=== PATIENT | male | born 1930 | race Caucasian/White ===

== ENCOUNTER 2017-06-30 08:10 | Observation (INO) ==
--- NOTE | 2017-06-30 08:22 | Emergency Department Note ---
Disposition Clinical Impression: Decreased ambulation status, Cough, Bilateral leg weakness Dyspnea Qualifiers: Dyspnea type: unspecified Qualified Code(s): R06.00 - Dyspnea, unspecified Disposition: Admitted As Inpatient Condition: Good Referrals: Franco Rehman Jr, MD [Primary Care Provider] - Forms: ED Satisfaction Letter Time of Disposition: 10:56 Dizziness HPI - General Chief Complaint: ED Dizziness Stated Complaint: "dizzy,cough,upset stomach" Time Seen by Provider: 06/30/17 08:22 Source: patient Mode of arrival: ambulatory Limitations: no limitations Nursing Notes Reviewed: Yes Vital Signs Reviewed: Yes - History of Present Illness HPI Narrative: Patient is an 86-year-old male with past medical history of hypertension, hyperlipidemia, history of prostate cancer which he has received chemotherapy treatments in the past but is currently not on any chemotherapy. He lives at an independent living facility through [facility] residency. He presents today due to lightheadedness, productive cough. He states that he has had a productive cough and mild shortness of breath for the past week. During this time, he has also developed gradually lightheadedness. He says that it is mainly when he goes from sitting to standing. Denies any falls, denies any disequilibrium to either side when walking, no other numbness, healing, weakness , no history of CVA in the past. Denies any overt chest pain, abdominal pain, diarrhea. He does have post tussive emesis. - Related Data Allergies Allergy/AdvReac Type Severity Reaction Status Date / Time No Known Allergies Allergy Verified 11/01/15 19:16 All systems ED: reviewed and negative except as stated. Constitutional: Denies: fever Cardiovascular: Denies: chest pain, palpitations Respiratory: Reports: cough, dyspnea, sputum production. Denies: wheezes, hemoptysis Gastrointestinal: Reports: vomiting (Posttussive). Denies: abdominal pain, nausea, diarrhea Genitourinary: Denies: urgency, dysuria Neurological: Denies: headache, weakness, numbness, paresthesias Past Medical History - Past Medical History Attestation: Yes The following information was validated with the patient. Source: patient Medical history: Reports: hyperlipidemia, hypertension Psychiatric history: Reports: no psych history - Social History Smoking Status: Never smoker Alcohol use: Reports: occasionally Drug use: Reports: unknown Physical Exam - General Limitations: no limitations General appearance: alert, in no apparent distress - Head Head exam: atraumatic, normocephalic, normal inspection - Eye Eye exam: Present: normal appearance, PERRL, EOMI - ENT ENT exam: normal exam, normal oropharynx, mucous membranes moist - Neck Neck exam: Present: normal inspection, full ROM, trachea midline - Chest Chest inspection: Present: normal inspection, symmetric chest wall rise - Respiratory Respiratory exam: Present: normal lung sounds bilaterally - Cardiovascular Cardiovascular exam: Present: regular rate, normal rhythm, normal heart sounds - Abdominal Exam Abdominal exam: Present: soft, Non-Tender. Absent: tenderness, distention, guarding, rebound, rigidity - Extremities Exam Extremities exam: Present: normal inspection, full ROM. Absent: tenderness, pedal edema - Neurological Exam Neurological exam: Present: alert, oriented X3, CN II-XII intact. Absent: motor sensory deficit - Psychiatric Psychiatric exam: Present: normal affect, normal mood - Skin Skin exam: Present: warm, dry, intact, normal color Course Course Narrative: Patient is mildly hypertensive. Otherwise, the rest of the vitals were within normal limits. Physical exam shows a patient in no acute distress, heart regular rate and rhythm, 1 exam shows mild wheezing right lower lobe otherwise clear to auscultation. Abdomen soft and nontender. No focal neurologic deficits. We will obtain EKG, chest x-ray, troponin, CT of the head for further assessment. Overall, patient's symptoms sound more orthostatic in nature. We will perform orthostatic vital signs while here in the department. 09:46 labs show mild elevation in white blood cell count. Otherwise, no major electrolyte abnormality. Troponin negative. EKG shows no acute ST changes. Chest x-ray negative for any acute cardiopulmonary process. Head CT negative for any acute intracranial abnormality. Giving the patient 1 L normal saline bolus. We will reassess and ambulate the patient. 10:20 patient had weakness in his bilateral lower 70s while trying to ambulate. This is new for him. He also has continued cough and some mild nausea. We will give the patient a breathing treatment and see if this helps. Will discuss with his primary care physician. May consider bringing the patient in as he usually lives at home by himself and has a new difficulty with ambulation. 10:[address] Spoke with his PCP Dr. Rehman who agrees that this bilateral lower extremity weakness is new for the patient. We will admit the patient for bilateral large [place]-weakness, difficulty with ambulation, cough and dyspnea. Chest X-Ray 06/30/17 08:31 IMPRESSION: No acute process. Re-demonstration of old left rib fractures, COPD and postthoracotomy changes. D/ / 06/30/2017 08:43:56 Naomi Hull MD / [facility] Interpreting Provider: Naomi Hull MD Head CT 06/30/17 08:33 IMPRESSION: Atrophy and chronic small vessel ischemic disease with bilateral remote lacunar infarcts of the basal ganglia. No acute intracranial abnormality. D/ / 06/30/2017 09:03:19 Pérez Wan MD / [facility] Interpreting Provider: Pérez Wan MD Vital Signs Temperature 99.3 F 06/30/17 08:25 Pulse Rate 72 06/30/17 08:25 Respiratory Rate 18 06/30/17 08:25 Blood Pressure 154/71 06/30/17 08:25 O2 Sat by Pulse Oximetry 98 06/30/17 08:25 Temperature 99.3 F 06/30/17 08:25 Pulse Rate 61 06/30/17 10:52 Respiratory Rate 15 06/30/17 10:52 Blood Pressure 166/96 06/30/17 10:52 O2 Sat by Pulse Oximetry 100 06/30/17 10:52 Oxygen Delivery Oxygen Delivery Room Air [facility] Narrative Medical decision making narrative: Patient is mildly hypertensive. Otherwise, the rest of the vitals were within normal limits. Physical exam shows a patient in no acute distress, heart regular rate and rhythm, 1 exam shows mild wheezing right lower lobe otherwise clear to auscultation. Abdomen soft and nontender. No focal neurologic deficits. We will obtain EKG, chest x-ray, troponin, CT of the head for further assessment. Overall, patient's symptoms sound more orthostatic in nature. We will perform orthostatic vital signs while here in the department. 09:46 labs show mild elevation in white blood cell count. Otherwise, no major electrolyte abnormality. Troponin negative. EKG shows no acute ST changes. Chest x-ray negative for any acute cardiopulmonary process. Head CT negative for any acute intracranial abnormality. Giving the patient 1 L normal saline bolus. We will reassess and ambulate the patient. 10:20 patient had weakness in his bilateral lower 70s while trying to ambulate. This is new for him. He also has continued cough and some mild nausea. We will give the patient a breathing treatment and see if this helps. Will discuss with his primary care physician. May consider bringing the patient in as he usually lives at home by himself and has a new difficulty with ambulation. 10:[address]oke with his PCP Dr. Rehman who agrees that this bilateral lower extremity weakness is new for the patient. We will admit the patient for bilateral large [place]-weakness, difficulty with ambulation, cough and dyspnea. - Medical Records Medical records reviewed: Yes I reviewed the patient's medical records. - Lab Data Lab results reviewed: Yes I reviewed the patient's lab results. Result diagrams: 06/30/17 08:46 06/30/17 08:46 Lab Results 06/30/17 06/30/17 06/30/17 Range/Units 08:46 08:46 08:46 WBC 12.4 H (4.3-11.1) K/mcL RBC 4.11 L (4.19-5.50) M/mcL Hgb 12.3 L (12.9-16.9) g/dL Hct 37.3 L (37.5-50.1) % MCV 90.8 (83.0-100.0) fL MCH 29.9 (28.0-33.3) pg MCHC 33.0 (31.6-35.5) g/dL RDW 14.4 (11.5-14.5) % Plt Count 265 (140-400) K/mcL MPV 10.3 (9.4-12.4) fL Immature Gran % 0.5 (0-4) % Seg Neutrophils % 82.6 % Lymphocytes % 7.3 % Monocytes % 8.5 % Eosinophils % 0.9 % Basophils % 0.2 % Neutrophils # 10.2 H (1.6-8.9) K/mcL Lymphocytes # 0.9 (0.6-4.6) K/mcL Monocytes # 1.1 (0.0-1.3) K/mcL Eosinophils # 0.1 (0.0-0.6) K/mcL Basophils # 0.0 (0.0-0.2) K/mcL Nucleated RBCs/100 WBC 0.2 H (0) /100 WBC PT 11.1 (9.4-12.1) Seconds INR 1.0 Sodium 137 (136-145) mEq/L Potassium 4.8 (3.5-5.1) mEq/L Chloride 103 (98-107) mEq/L Carbon Dioxide 27 (23-29) mEq/L BUN 27 H (8-23) mg/dL Creatinine 1.16 (0.70-1.30) mg/dL Est GFR ( Amer) > 60 (> 60) Est GFR (Non-Af Amer) 59 L (> 60) BUN/Creatinine Ratio 23 (6-26) Glucose 125 H (70-105) mg/dL Calculated Osmolality 291 (280-300) Calcium 9.2 (8.6-10.3) mg/dL Troponin I < 0.03 (< 0.04) ng/mL - Radiology Data Radiology results reviewed: Yes I reviewed the patient's radiology results. Chest X-Ray 06/30/17 08:31 IMPRESSION: No acute process. Re-demonstration of old left rib fractures, COPD and postthoracotomy changes. D/ / 06/30/2017 08:43:56 Naomi Hull MD / [facility] Interpreting Provider: Naomi Hull MD Head CT 06/30/17 08:33 IMPRESSION: Atrophy and chronic small vessel ischemic disease with bilateral remote lacunar infarcts of the basal ganglia. No acute intracranial abnormality. D/ / 06/30/2017 09:03:19 Pérez Wan MD / [facility] Interpreting Provider: Pérez Wan MD - EKG Data EKG attestation: Yes I reviewed and interpreted this EKG. EKG results narrative: 06/30/2017 and 08:21. Normal sinus rhythm. Rate 70. OK 168. QRS 104. QTC 404. Left axis deviation. No acute ST elevation or depression. There is some mild ST elevation in V2 that was present on old EKG on 11/01/2015. S.Sybil. - S.Sybil. Situation: Demographics, MOA Background: Presenting Complaint, Relevant PMH, Meds, & Allergies Assessment: Vital Signs, Course and respsone to treatment, Exam Concerns, Patient/Family Expectation, Pertinant Lab Results Recommendation: Barrier(s) to disposition, Recommendation based on pending studies, treatments, or consults S.B.A.R. Report Given to: Dr. Atkins
--- NOTE | 2017-06-30 08:32 | Emergency Department Note ---
START Narrative - START START: I examined this patient and my medical decision-making was reviewed with the Resident Physician. I agree with the documented findings, disposition and treatment plan as described except to the extent set forth below. 86-year-old male presented to the emergency room for cough and dizziness. Onset 2 days ago. States he has been having some vomiting secondary to posttussive. Patient will be worked up for this cough as well as his dizziness. We will check some cardiac labs as well. Chest x-ray EKG. Screening lab work. Disposition is pending at this time.
[2017-06-30 09:00] LABS: Basophils % 0.2 %; Eosinophils # 0.1 K/mcL (0.0-0.6); Eosinophils % 0.9 %; Hematocrit 37.3 % (37.5-50.1); Hemoglobin 12.3 g/dL (12.9-16.9); Immature Granulocytes % 0.5 % (0-4); Lymphocytes # 0.9 K/mcL (0.6-4.6); Lymphocytes % 7.3 %; Mean Corpuscular Hemoglobin 29.9 pg (28.0-33.3); Mean Corpuscular Volume 90.8 fL (83.0-100.0); Mean Platelet Volume 10.3 fL (9.4-12.4); Monocytes # 1.1 K/mcL (0.0-1.3); Monocytes % 8.5 %; Neutrophils # 10.2 K/mcL (1.6-8.9); Nucleated Red Blood Cells 0.2 /100 WBC (0); Platelet Count 265 K/mcL (140-400); Red Blood Count 4.11 M/mcL (4.19-5.50); Red Cell Distribution Width 14.4 % (11.5-14.5); Segmented Neutrophils % 82.6 %
[2017-06-30 09:11] LABS: Prothrombin Time 11.1 Seconds (9.4-12.1)
[2017-06-30 09:25] LABS: BUN/Creatinine Ratio 23 (6-26); Blood Urea Nitrogen 27 mg/dL (8-23); Calcium 9.2 mg/dL (8.6-10.3); Carbon Dioxide 27 mEq/L (23-29); Chloride 103 mEq/L (98-107); Glucose 125 mg/dL (70-105); Osmolality,Calculated 291 (280-300); Potassium 4.8 mEq/L (3.5-5.1); Sodium 137 mEq/L (136-145); Troponin I < 0.03 ng/mL (< 0.04); eGFR For African Americans > 60 (> 60); eGFR For Non-African Americans 59 (> 60)
[2017-06-30] MEDS ORDERED: 0.9 % Sodium Chloride 1,000 ML IVC ONE (09:46)
[2017-06-30] MEDS ORDERED: Ipratropium/Albuterol Neb 3 ML IH ONE (10:17)
[2017-06-30] MEDS ORDERED: Naloxone 0.4 MG/ML INJ IVP PRN (14:52)
[2017-06-30] MEDS ORDERED: Acetaminophen 325 MG TABLET PO PRN (14:52)
--- NOTE | 2017-06-30 14:57 | Internal Med History&Physical ---
Date of Encounter: 06/30/17 Time of Encounter: 14:30 Internal Medicine - H&P: HPI Chief complaint: Dizziness, leg weakness Admitted From: Emergency Dept Plans for Post Hospital Care: Home History of present illness: Mr. Melgoza is a 86 year old male with h/o- CAD, HTN, who presents with c/o- dizziness and leg weakness. Paient reports he has been having weakness in both his legs, which has been going on for at least a month or more. He is very active at baseline and was able to walk at least 1 mile each day at his independent living facility. He has been experiencing dizziness on standing up from sitting position/supine position along with weakness in both his legs, and is unable to ambulate for fear of falling. No fever/chills. No associated headache, chest pain, dyspnea, blurred vision, paresthesias or syncope. He does report dry cough, which does not bother him too much. Past Med Surg Social Fam HX - Past Medical History Medical history: asthma, cancer (prostate), coronary artery disease, hyperlipidemia, hypertension, renal disease Psychiatric history: no psych history - Past Surgical History Surgical History: appendectomy, coronary bypass (CABG), vascular surgery (AAA repair) - Social History Smoking Status: Former smoker Smokeless Tobacco Status: No Alcohol use: occasionally Drug use: none Occupational status: retired Current living situation: Assisted Living Activity Level: Independent ambulation Recent Out of Country Travel Within the Last 8 Weeks: No Exposure or Possible Exposure to Illness During Travel: No - Family History Father Hx Family Cardiac Disorders: Yes (CAD) Grandfather Hx Family Cardiac Disorders: Yes (CAD) Internal Medicine - H&P: Meds Aspirin [Adult Aspirin Regimen] 81 mg PO DAILY 06/30/17 [History] Atorvastatin Calcium [Lipitor] 20 mg PO QPM 06/30/17 [History] Fluticasone Propionate [Flovent Hfa] 2 puff IH BID 06/30/17 [History] Folic Acid 1 mg PO DAILY 06/30/17 [History] Lisinopril [Zestril] 20 mg PO DAILY 06/30/17 [History] 3 Allergy/AdvReac Type Severity Reaction Status Date / Time No Known Allergies Allergy Verified 11/01/15 19:16 All Systems PM: A 10-system review of systems was performed and is negative for pertinent findings except as documented above in the HPI. - Constitutional Constitutional: weakness - EENT Eyes: no change in vision, no discharge, no pain, no photophobia Ears: no ear discharge, no ear pain, no tinnitus Nose, mouth and throat: no dysphagia, no nasal discharge, no neck pain, no sore throat - Cardiovascular Cardiovascular ROS IM: lightheadedness, no chest pain, no diaphoresis, no dyspnea, no palpitations, no syncope - Respiratory Respiratory: cough - Gastrointestinal Gastrointestinal: no abdominal pain, no diarrhea, no hematemesis, no hematochezia, no melena, no nausea, no vomiting - Musculoskeletal Musculoskeletal ROS IM: no numbness, no tingling - Integumentary Integumentary IM: no rash, no unusual bruising - Neurological Neurological ROS: abnormal gait, dizziness, no confusion, no convulsions, no focal weakness, no numbness, no tingling, no tremor(s) - Hematologic/Lymphatic Hematologic/Lymphatic: no easy bruising - Constitutional Vitals: Temp Pulse Resp BP Pulse Ox 97.9 F 66 14 124/62 95 06/30/17 13:55 06/30/17 13:55 06/30/17 13:55 06/30/17 13:55 06/30/17 13:55 General appearance: Present: A&O X 3, answers questions appropriately - Respiratory Respiratory exam: Present: CTAB. Absent: accessory muscle use, rales, rhonchi, wheezes - Cardiovascular Cardiovascular exam: Present: RRR, +S1, +S2. Absent: diastolic murmur, gallop, rubs, systolic murmur - GI/Abdominal GI/Abdominal exam: Present: normal bowel sounds, soft, no peritoneal signs. Absent: distended, tenderness - Extremities Exam Extremities exam: Present: full ROM, warm, radial pulses palpable and symmetrical. Absent: calf tenderness, cyanotic, pedal edema - Neurological Exam Neurological exam: Present: CN II-XII intact, oriented X3, no focal deficits. Absent: pronater drift, facial droop, speech deficit - Skin Skin exam: Present: dry, intact Internal Med - H&P Results - Labs CBC & Chem 7: 06/30/17 08:46 06/30/17 08:46 - Assessment and plan (1) Bilateral leg weakness Current Visit: Yes Status: Acute Assessment and plan: new onset but somewhat subacute to chronic per history. Plan as below; check electrolytes. PT/OT evaluation. (2) Dizziness Current Visit: Yes Status: Acute Assessment and plan: Orthostatic vitals negative. CT head showed old lacunar infarcts in basal f\ ganglia, chronic microvascular ischemic disease; chest XRay reviewed independently- hyoperexpanded lung fitzpatrick, sternotomy wires intact, RLL chronic interstitial changes. EKG shows no acute ischemic changes, per ER notes, cannot find EKG at this time. Continue to monitor vital sings closely. Check MRI brain to r/o small posterior stroke. Carotid Doppler from 2016 showed B/L 60-79% stenosis, will repeat Carotid Doppler to evaluate progression. PT/OT evaluation. Fall precautions. (3) Essential hypertension Current Visit: Yes Status: Chronic Assessment and plan: BP noted to be fairly elevated at triage; continue ACEI and monitor closely; (4) Hyperlipidemia Current Visit: Yes Status: Chronic Assessment and plan: continue statin; Qualifiers: Hyperlipidemia type: unspecified Qualified Code(s): E78.5 - Hyperlipidemia , unspecified (5) CAD (coronary artery disease) Current Visit: Yes Status: Chronic Assessment and plan: continue ASA and statin; check serial Troponins, continue Telemetry monitoring. Qualifiers: Coronary Disease-Associated Artery/Lesion type: bypass graft [place] vs. transplanted heart: [place] heart Associated angina: without angina Qualified Code(s): I25.810 - Atherosclerosis of coronary artery bypass graft(s) without angina pectoris (6) CKD (chronic kidney disease), stage III Current Visit: Yes Status: Chronic Assessment and plan: serum creatinine and GFR stable, at baseline. Avoid new nephrotoxic agents. - Time Spent With Patient Total time spent is greater than 50% in coordination of care (as documented) at patient's floor/unit and/or counseling patient:
[2017-06-30 15:38] LABS: Bilirubin,Urine Negative (Negative); Blood,Urine Negative (Negative); Clarity,Urine Clear (Clear); Color,Urine Yellow (Yellow); Glucose,Urine (UA) Normal (Normal); Ketones,Urine Negative (Negative); Leukocyte Esterase,Urine Negative (Negative); Nitrite,Urine Negative (Negative); PH,Urine 6.5 pH Units (5.0-8.0); Protein,Urine Negative (Neg-Trace); Urobilinogen,Urine Normal (Normal)
[2017-06-30] MEDS: *HR* Heparin 5,000 UNIT/ML VIAL SQ SCH (20:13)
[2017-06-30] MEDS: Beclomethasone 80mcg MDI IH SCH (21:17)
[2017-07-01 04:58] LABS: Basophils % 0.4 %; Eosinophils # 0.3 K/mcL (0.0-0.6); Eosinophils % 4.3 %; Hematocrit 33.1 % (37.5-50.1); Immature Granulocytes % 0.3 % (0-4); Lymphocytes # 2.2 K/mcL (0.6-4.6); Lymphocytes % 30.8 %; Mean Corpuscular HGB Conc 32.3 g/dL (31.6-35.5); Mean Corpuscular Hemoglobin 29.5 pg (28.0-33.3); Mean Corpuscular Volume 91.2 fL (83.0-100.0); Mean Platelet Volume 10.7 fL (9.4-12.4); Monocytes # 0.8 K/mcL (0.0-1.3); Monocytes % 10.5 %; Neutrophils # 3.9 K/mcL (1.6-8.9); Platelet Count 233 K/mcL (140-400); Red Blood Count 3.63 M/mcL (4.19-5.50); Red Cell Distribution Width 14.6 % (11.5-14.5); Segmented Neutrophils % 53.7 %
[2017-07-01 05:09] LABS: BUN/Creatinine Ratio 23 (6-26); Blood Urea Nitrogen 24 mg/dL (8-23); Calcium 8.7 mg/dL (8.6-10.3); Carbon Dioxide 26 mEq/L (23-29); Chloride 109 mEq/L (98-107); Glucose 100 mg/dL (70-105); Magnesium 2.3 mg/dL (1.6-2.6); Osmolality,Calculated 294 (280-300); Potassium 4.6 mEq/L (3.5-5.1); Sodium 140 mEq/L (136-145); eGFR For African Americans > 60 (> 60); eGFR For Non-African Americans > 60 (> 60)
[2017-07-01 05:14] LABS: Hemoglobin 10.7 g/dL (12.9-16.9)
[2017-07-01] MEDS: *HR* Heparin 5,000 UNIT/ML VIAL SQ SCH ×3 (05:24→21:48)
[2017-07-01] MEDS: Beclomethasone 80mcg MDI IH SCH ×2 (08:11→20:26)
[2017-07-01] MEDS: Lisinopril 20 MG TABLET PO SCH (10:19)
[2017-07-01] MEDS: Folic Acid 1 MG TABLET PO SCH (10:19)
[2017-07-01] MEDS: Aspirin Enteric Coated 81 MG Tablet PO SCH (10:19)
--- NOTE | 2017-07-01 17:55 | Internal Med Progress Note ---
Date of Encounter: 07/01/17 Time of Encounter: 17:53 - Assessment and plan (1) Bilateral leg weakness Current Visit: Yes Status: Acute Assessment and plan: Patient feels he is back to his baseline. PT/OT evaluation completed. (2) Dizziness Current Visit: Yes Status: Acute Assessment and plan: Orthostatic vitals negative. CT head showed old lacunar infarcts in basal f\ ganglia, chronic microvascular ischemic disease; chest XRay reviewed independently- hyoperexpanded lung fitzpatrick, sternotomy wires intact, RLL chronic interstitial changes. EKG shows no acute ischemic changes, per ER notes, Continue to monitor vital sings closely. MRI brain negative for acute changes just old infarcts.. Carotid Doppler from 2016 showed B/L 60-79% stenosis, repeat Carotid Doppler report pending. PT/OT evaluation completed and recommend cane and return to his assisted living facility with fall precautions. (3) Essential hypertension Current Visit: Yes Status: Chronic Assessment and plan: BP stable; (4) Hyperlipidemia Current Visit: Yes Status: Chronic Assessment and plan: continue home statin; Qualifiers: Hyperlipidemia type: unspecified Qualified Code(s): E78.5 - Hyperlipidemia , unspecified (5) CAD (coronary artery disease) Current Visit: Yes Status: Chronic Assessment and plan: continue ASA and statin, serial Troponins negative, continue Telemetry monitoring. Qualifiers: Coronary Disease-Associated Artery/Lesion type: bypass graft [place] vs. transplanted heart: [place] heart Associated angina: without angina Qualified Code(s): I25.810 - Atherosclerosis of coronary artery bypass graft(s) without angina pectoris (6) CKD (chronic kidney disease), stage III Current Visit: Yes Status: Chronic Assessment and plan: serum creatinine and GFR stable, at patient baseline. Avoid new nephrotoxic agents. - Time Spent With Patient Total time spent is greater than 50% in coordination of care (as documented) at patient's floor/unit and/or counseling patient: - Subjective Interval history: Patient was up walking the [facility] with [facility] therapy. He is just a slightly unstable gait per their assessment a recommend he use a cane or a walker at the [facility]. They feel he is able to return to [facility] assisted living without difficulty. The patient states he is no longer dizzy. He states that he feels like he is back to his baseline. He has no chest pain, shortness of breath, sweats, fever, chills, headache, blurred vision, dizziness or ringing in his ears. He feels that he could go back to his apartment with his cat tonight if he would be allowed. I told her I would like to watch him overnight and monitor his blood pressure and make sure he was not orthostatic before he left. He verbalized understanding and is agreeable to stay. - Constitutional Vitals: Temp Pulse Resp BP Pulse Ox 98.7 F 65 16 126/71 96 07/01/17 15:36 07/01/17 15:36 07/01/17 15:36 07/01/17 15:36 07/01/17 15:36 General appearance: Present: cooperative, A&O X 3, pleasant, answers questions appropriately - Head Head exam: Present: atraumatic, normocephalic - Eye Eye exam: Present: normal appearance, PERRL, conjuntiva pink, sclera anicteric. Absent: nystagmus Pupils: Present: PERRL - Neck Neck exam general surgery: Present: supple, trachea midline. Absent: lymphadenopathy - Respiratory Respiratory exam: Present: CTAB. Absent: accessory muscle use, rales, rhonchi, wheezes - Cardiovascular Cardiovascular exam: Present: RRR, +S1, +S2. Absent: diastolic murmur, gallop, rubs, systolic murmur - GI/Abdominal GI/Abdominal exam: Present: normal bowel sounds, soft, no peritoneal signs. Absent: distended, tenderness - Extremities Exam Extremities exam: Present: warm, radial pulses palpable and symmetrical. Absent : calf tenderness, cyanotic, pedal edema - Neurological Exam Neurological exam: Present: alert, CN II-XII intact, oriented X3, no focal deficits. Absent: pronater drift, facial droop, speech deficit - Skin Skin exam: Present: dry, intact, normal color, warm Internal Medicine: Result - Labs CBC & Chem 7: 07/01/17 03:32 07/01/17 03:32 Labs: Short CBC 07/01/17 Range/Units 03:32 WBC 7.2 (4.3-11.1) K/mcL Hgb 10.7 L D (12.9-16.9) g/dL Hct 33.1 L (37.5-50.1) % Plt Count 233 (140-400) K/mcL Neutrophils # 3.9 (1.6-8.9) K/mcL BMP 07/01/17 03:32 Sodium 140 Potassium 4.6 Chloride 109 H Carbon Dioxide 26 BUN 24 H Creatinine 1.05 Glucose 100 Calcium 8.7 Cardiac Enzymes 06/30/17 07/01/17 Range/Units 21:38 03:32 Troponin I < 0.03 < 0.03 (< 0.04) ng/mL - ABG Interpretation ABG results: PT/INR, D-dimer PT 11.1 Seconds (9.4-12.1) 06/30/17 08:46 - Impressions Impressions Brain MRI 06/30/17 14:54 IMPRESSION: 1. No acute intracranial abnormality. 2. Moderate chronic white matter microvascular ischemic changes. 3. Remote lacunar infarcts in the bilateral basal ganglia and left thalamus. D/ / Volodymyr Perdomo / Volodymyr Perdomo Interpreting Provider: Volodymyr Perdomo Consult Discharge Plan - Plan Referrals: Franco Rehman Jr, MD [Primary Care Provider] -
[2017-07-02] MEDS: *HR* Heparin 5,000 UNIT/ML VIAL SQ SCH (05:31)
[2017-07-02] MEDS ORDERED: *HR* Metoprolol 5 MG/5 ML VIAL IVP STA (07:37)
[2017-07-02] MEDS ORDERED: *HR* Metoprolol 5 MG/5 ML VIAL IVP ONE (07:39)
[2017-07-02] MEDS: Beclomethasone 80mcg MDI IH SCH (09:56)
[2017-07-02] MEDS: Aspirin Enteric Coated 81 MG Tablet PO SCH (11:37)
[2017-07-02] MEDS: Lisinopril 20 MG TABLET PO SCH (11:37)
[2017-07-02] MEDS: Folic Acid 1 MG TABLET PO SCH (11:37)
[2017-07-02 12:09] VITALS: BP 131/60
--- NOTE | 2017-07-02 12:09 | Discharge Summary ---
- NOTES TO OUTPATIENT PROVIDER Notes to Outpatient Provider: Holter monitor and then follow-up with cardiology as scheduled as outpatient. Follow-up with primary care physician. Fall risk and should utilize a cane or walker at his assisted living facility. Patient requesting to have no CPR, no heroics no machines he would like to be a DNR Orders not resulted at time of discharge: Pending orders 07/02/17 09:03 EV echocardiogram Routine 07/02/17 10:10 ECG 48 holter monitor setup [ECG] Routine 07/02/17 13:10 Troponin I Stat 07/02/17 19:30 Troponin I Routine Date of Encounter: 07/02/17 Time of Encounter: 12:05 - Discharge Diagnosis (1) Bilateral leg weakness Priority: Primary Status: Chronic (2) Dizziness Priority: Primary Status: Acute (3) Essential hypertension Priority: Primary Status: Chronic (4) Hyperlipidemia Priority: Primary Status: Chronic Qualifiers: Hyperlipidemia type: unspecified Qualified Code(s): E78.5 - Hyperlipidemia , unspecified (5) CAD (coronary artery disease) Priority: Primary Status: Chronic Qualifiers: Coronary Disease-Associated Artery/Lesion type: bypass graft [place] vs. transplanted heart: [place] heart Associated angina: without angina Qualified Code(s): I25.810 - Atherosclerosis of coronary artery bypass graft(s) without angina pectoris (6) CKD (chronic kidney disease), stage III Priority: Primary Status: Chronic (7) Carotid artery stenosis without cerebral infarction Priority: Primary Status: Chronic Comments: f/u with repeat carotid duplex in 6 months recommended Qualifiers: Laterality: bilateral Qualified Code(s): I65.23 - Occlusion and stenosis of bilateral carotid arteries Hospital course: Mr. Melgoza is a 86 year old male with history of CAD, hypertension, asthma, hyperlipidemia and renal disease as well as prostate cancer who presented to the emergency room for evaluation of dizziness and leg weakness. He stated he been having some problems with his legs being weak for over a month or more. He states he used to be able to walk a mile each day last summer at his independent living facility. He also has been having some dizziness when moving from standing to sitting supine position. Orthostatic blood pressures were obtained and were non-orthostatic. He has had no recent illnesses no fever chills chest pain or other complaints. PT evaluated the patient and recommends home PT OT which has been ordered. This morning he developed a run of SVT on the monitor and then dropped down into the 60s. Cardiology was contacted and they recommended a outpatient Holter monitor and then follow-up in the office. I had discussion with the patient regarding his CODE STATUS and he requests to be a no CPR no intubation, no heroics. CT of the head showed old lacunar infarcts and chronicl microvascular disease. Bilateral carotid Dopplers showed minimal progression of stenosis from 2016 study. He was advised to utilize a walker and to change positions slowly. EKG showed no ischemic changes. Chest x-ray with nothing acute. Brain MRI showed no acute intercranial abnormality. Echocardiogram was obtained and report is still pending. Will be reviewed by cardiology and discussed with patient at his outpatient follow-up. The patient requests to go back to his assisted living apartment with home PT OT. He did not wish to go anywhere else. Discussed with him the need to use his walker and be cautious with movements. Also to follow-up with cardiology as directed. He is to be discharged with a Holter monitor. Discharge discussed with: patient, family, nurse, case management, freight traffic consultant - Time Spent with Patient Total time spent providing and/or coordinating discharge services: Less than 30 minutes - Discharge Medications Home Medications: Aspirin [Adult Aspirin Regimen] 81 mg PO DAILY 06/30/17 [History] Atorvastatin Calcium [Lipitor] 20 mg PO QPM 06/30/17 [History] Fluticasone Propionate [Flovent Hfa] 2 puff IH BID 06/30/17 [History] Folic Acid 1 mg PO DAILY 06/30/17 [History] Lisinopril [Zestril] 20 mg PO DAILY 06/30/17 [History] Allergies/Adverse Reactions: 3 Allergy/AdvReac Type Severity Reaction Status Date / Time No Known Allergies Allergy Verified 11/01/15 19:16 Date of admission: 06/30/17 12:55 Primary care physician: Franco Rehman Jr, MD Consults: 06/30/17 14:53 Consult to Physical Therapy [CONS] Routine Comment: Evaluate, develop and implement POC Reason for Consult: Lower extremity weakness, dizziness Does patient have active BEDREST order?: No Is patient medically & hemodynamically stable?: Yes Patient assessed for mobility or mobilized this visit?: No Discharging clinician: Nayeli Villegas Anticipated date of discharge: 07/02/17 - Constitutional Vitals: Temp Pulse Resp BP Pulse Ox 98.6 F 60 18 157/71 97 07/02/17 06:39 07/02/17 06:39 07/02/17 09:56 07/02/17 06:39 07/02/17 09:56 General appearance: Present: cooperative, A&O X 3, pleasant, no acute distress, underweight, answers questions appropriately - Head Head exam: Present: atraumatic, normocephalic - Eye Eye exam: Present: PERRL, conjuntiva pink, sclera anicteric Pupils: Present: PERRL - Neck Neck exam general surgery: Present: supple, trachea midline. Absent: lymphadenopathy - Respiratory Respiratory exam: Present: CTAB. Absent: accessory muscle use, rales, rhonchi, wheezes - Cardiovascular Cardiovascular exam: Present: RRR, +S1, +S2. Absent: diastolic murmur, gallop, rubs, systolic murmur - GI/Abdominal GI/Abdominal exam: Present: normal bowel sounds, soft, no peritoneal signs. Absent: distended, tenderness - Extremities Exam Extremities exam: Present: warm, radial pulses palpable and symmetrical. Absent : calf tenderness, cyanotic, pedal edema - Neurological Exam Neurological exam: Present: alert, CN II-XII intact, oriented X3, no focal deficits, strengths equal and symetr throughout. Absent: motor sensory deficit , pronater drift, facial droop, speech deficit - Skin Skin exam: Present: dry, intact, normal color, warm - Patient Status Disposition: Transfer Other Condition: Good Functional capacity at discharge: uses cane/walker Overall status at discharge: patient is progressing back to baseline - Discharge Instructions Follow Up With: Franco Rehman Jr, MD [Primary Care Provider] - 07/07/17 11:45 am Additional Instructions: Patient is a fall risk. He will have a Holter monitor on with follow-up per cardiology. Patient is to utilize a walker and will have home PT OT at his apartment. - Diet and Activity Activity: ambulate only with your walker Diet: low fat, low cholesterol (Transition assisted living)
--- NOTE | 2017-07-03 13:01 | Electrocardiograph Report ---
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
--- NOTE | 2017-07-03 13:01 | Electrocardiograph Report ---
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
--- NOTE | 2017-07-03 13:37 | Electrocardiograph Report ---
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
--- NOTE | 2017-07-03 13:48 | Electrocardiograph Report ---
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
== END 2017-07-02 17:17 | disposition other institution (70) ==
LOC: 3BNU 08:10 → EMEROO 08:10 → 3BNU 13:28
PROVIDERS: ADMIT Internal Medicine; ATTEND Registered Nurse